=== PATIENT | female | born 2000 | race Caucasian/White ===

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

== ENCOUNTER 2021-07-09 20:20 | Outpatient (CLI) | payer BC ==
[2021-07-09 21:55] VITALS: BP 130/83; PULSE 80; RESP 16; TEMP 98.5
--- NOTE | 2021-07-10 07:47 | P.MSEPDOC ---
Presenting Problems - Arrival Data Date of Arrival on Unit: 07/09/21 Time of Arrival on Unit: 20:20 Mode of Transport: Wheelchair - Complaint OB-Reason for Admission/Chief Complaint: Pain Comment: pt presents to tr with c/o "severe lower back pain" x2 hrs. states it started. happening a few hrs after "walking up a very steep hill." pt denies any bleeding or leaking. pt states that she is feeling good fm. denies needing to void for a UA at this time. Medical History - Information : 1 Para: 0 Term: 0 : 0 Abortions: Spontaneous or Elective: 0 Number of Living Children: 0 - Gestational Age Gestational Age by MONSTER (wks/days): 25 Weeks and 4 Days Review of Systems - Review of Systems Constitutional: No problems Breast: No problems ENT: No problems Cardiovascular: No problems Respiratory: No problems Gastrointestinal: No problems Genitourinary: No problems Musculoskeletal: No problems Neurological: No problems Skin: No problems Vital Signs - Temperature Temperature: 98.5 F Temperature Source: Oral - Pulse Right Brachial Pulse Rate: 80 Pulse Assessment Method: Automatic Cuff - Respirations Respiratory Rate: 16 Oxygen Delivery Method: Room Air - Blood Pressure Right Arm Blood Pressure: 130/83 Blood Pressure Mean: 98 Blood Pressure Source: Automatic Cuff Medical Screen Scoring - Assessment - Baby A Baseline FHR: 145 Heart Rate - NICHD Category: Category I (Normal) Physician Notification - Physician Notified Physician Notified Date: 07/09/21 Physician Notified Time: 21:10 Physician: Luis Lopez Order Received: Yes - Notification Comment Comment: RN reported to Dr. Lopez that patient arrived to triage with complaints of. lower back pain after climbing a "very steep hill". Patient denies leaking or bleeding. States pain is 5/10 and constant. RN offered heat packs to back which patient states greatly relieved her pain. Dr. Lopez would like patient to be observed for one hour and if heart tones are still good patient may be released with instructions to follow up. Patients pain relieved. heart tones good. Patient discharged. Maternal Triage Index - Non-Urgent/Priority 4 Non-Urgent Priority 4: Yes Criteria Met for Priority 4: Back pain after climbing a hill Disposition - Disposition OB Disposition: Discharge to home Discharge Date: 07/09/21 Discharge Time: 21:50 I agree with the RN Medical Screening Exam: Yes Case reviewed; plan agreed upon as documented in EMR&OBIX.: Yes Diagnosis: RELATED CONDITIONS, UNSPECIFIED, SECOND TRIMESTER
== END 2021-07-09 21:50 | disposition home or self-care (01) ==
LOC: FBPOP 20:20
PROVIDERS: ATTEND Obstetrics & Gynecology
DX: O26.892 Other specified pregnancy related conditions, second trimester (principal); M54.9 Dorsalgia, unspecified; Z3A.25 25 weeks gestation of pregnancy
CPT/HCPCS: 99213

== ENCOUNTER 2021-07-11 19:11 | Inpatient (IN) | payer BC, OTHER ==
[2021-07-11] MEDS ORDERED: SODIUM CHLORIDE 0.9% 2,000 ML IV ONE (19:33)
[2021-07-11] MEDS ORDERED: ACETAMINOPHEN ORAL SUSP 160 MG/5 ML CUP PO ONE (19:33)
--- NOTE | 2021-07-11 19:52 | ED ---
Fever HPI - General Chief Complaint: Fever Stated Complaint: 26wks Preg/Fever/Cough Time Seen by Provider: 07/11/21 19:20 Source: patient, RN notes reviewed Mode of arrival: ambulatory Limitations: no limitations - History of Present Illness Initial Comments: This is a 20-year-old female [facility] chief complaint of fever. Patient states started smoking she will call cough congestion bodyaches. She is currently 26 weeks denies any complaints including vaginal bleeding vaginal discharge or abdominal pain. Patient said no sick contacts she states she took Tylenol proximal one hour ago but states feeling to 5 MLS of liquid Tylenol. Patient has no dysuria no hematuria denies any sore throat, ear pain headache or dizziness or neck pain. - Related Data Home Medications Medication Instructions Recorded Confirmed Acetaminophen Oral Susp [Tylenol] 480 mg PO Q4-6H PRN 07/11/21 07/11/21 Allergies Allergy/AdvReac Type Severity Reaction Status Date / Time No Known Allergies Allergy Verified 07/11/21 20:32 Review of Systems ROS Statement: Those systems with pertinent positive or pertinent negative responses have been documented in the HPI. ROS Other: All systems not noted in ROS Statement are negative. Past Medical History Past Medical History: No Reported History History of Any Multi-Drug Resistant Organisms: None Reported Past Surgical History: No Surgical Hx Reported Past Psychological History: No Psychological Hx Reported Smoking Status: Never smoker Past Alcohol Use History: None Reported Past Drug Use History: None Reported General Exam Limitations: no limitations General appearance: alert, in no apparent distress Head exam: Present: atraumatic, normocephalic, normal inspection Eye exam: Present: normal appearance, PERRL, EOMI. Absent: scleral icterus, con junctival injection, periorbital swelling ENT exam: Present: mucous membranes moist, TM's normal bilaterally. Absent: normal exam, normal oropharynx (Poor dentition) Neck exam: Present: normal inspection, full ROM. Absent: tenderness, meningismus, lymphadenopathy Respiratory exam: Present: normal lung sounds bilaterally. Absent: respiratory distress, wheezes, rales, rhonchi, stridor Cardiovascular Exam: Present: normal rhythm, tachycardia, normal heart sounds. Absent: systolic murmur, diastolic murmur, rubs, gallop, clicks GI/Abdominal exam: Present: soft, normal bowel sounds. Absent: distended, tenderness, guarding, rebound, rigid Back exam: Absent: CVA tenderness (R), CVA tenderness (L) Neurological exam: Present: alert Skin exam: Present: warm, dry, intact, normal color. Absent: rash Course Vital Signs 07/11/21 07/11/21 07/11/21 19:14 19:52 20:40 Temperature 101.7 F H 98.1 F Pulse Rate 154 H 135 H 109 H Respiratory 20 18 18 Rate Blood Pressure 92/57 107/66 O2 Sat by Pulse 97 97 97 Oximetry Medical Decision Making - Medical Decision Making 20-year-old presented for fever, tachycardia back pain. Patient has pyelonephritis. Patient was seen at labor and delivery 2 days ago for this back pain. Patient's case discussed with Dr. Mondragon who accepts admission will be continued on IV fluids, monitoring, IV antibiotics - Lab Data Result diagrams: 07/11/21 19:42 07/11/21 19:42 Lab Results 07/11/21 07/11/21 07/11/21 Range/Units 19:42 19:42 19:42 WBC 19.4 H (4.0-11.0) k/uL RBC 3.73 L (3.80-5.40) m/uL Hgb 13.2 (11.4-16.0) gm/dL Hct 36.8 (34.0-46.0) % MCV 98.5 (80.0-100.0) fL MCH 35.3 H (25.0-35.0) pg MCHC 35.8 (31.0-37.0) g/dL RDW 12.0 (11.5-15.5) % Plt Count 194 (150-450) k/uL MPV 9.7 Neutrophils % 91 % Lymphocytes % 4 % Monocytes % 4 % Eosinophils % 1 % Basophils % 0 % Neutrophils # 17.7 H (1.3-7.7) k/uL Lymphocytes # 0.8 L (1.0-4.8) k/uL Monocytes # 0.7 (0-1.0) k/uL Eosinophils # 0.1 (0-0.7) k/uL Basophils # 0.0 (0-0.2) k/uL Sodium 132 L (137-145) mmol/L Potassium 3.2 L (3.5-5.1) mmol/L Chloride 104 (98-107) mmol/L Carbon Dioxide 17 L (22-30) mmol/L Anion Gap 11 mmol/L BUN 10 (7-17) mg/dL Creatinine 0.72 (0.52-1.04) mg/dL Est GFR (CKD-EPI)AfAm >90 (>60 ml/min/1.73 sqM) Est GFR (CKD-EPI)NonAf >90 (>60 ml/min/1.73 sqM) Glucose 143 H (74-99) mg/dL Plasma Lactic Acid Mynor (0.7-2.0) mmol/L Calcium 9.0 (8.4-10.2) mg/dL Total Bilirubin 0.4 (0.2-1.3) mg/dL AST 23 (14-36) U/L ALT 14 (4-34) U/L Alkaline Phosphatase 111 (38-126) U/L Total Protein 6.6 (6.3-8.2) g/dL Albumin 3.4 L (3.5-5.0) g/dL Urine Color Yellow Urine Appearance Turbid H (Clear) Urine pH 6.0 (5.0-8.0) Ur Specific [place] 1.019 (1.001-1.035) Urine Protein 2+ H (Negative) Urine Glucose (UA) Negative (Negative) Urine Ketones 1+ H (Negative) Urine Blood Small H (Negative) Urine Nitrite Negative (Negative) Urine Bilirubin Negative (Negative) Urine Urobilinogen 4.0 (<2.0) mg/dL Ur Leukocyte Esterase Large H (Negative) Urine RBC 30 H (0-5) /hpf Urine WBC >182 H (0-5) /hpf Urine WBC Clumps Many H (None) /hpf Ur Squamous Epith Cells 7 H (0-4) /hpf Urine Bacteria Moderate H (None) /hpf Urine Mucus Moderate H (None) /hpf Coronavirus (PCR) (Not Detectd) 07/11/21 07/11/21 Range/Units 19:42 19:42 WBC (4.0-11.0) k/uL RBC (3.80-5.40) m/uL Hgb (11.4-16.0) gm/dL Hct (34.0-46.0) % MCV (80.0-100.0) fL MCH (25.0-35.0) pg MCHC (31.0-37.0) g/dL RDW (11.5-15.5) % Plt Count (150-450) k/uL MPV Neutrophils % % Lymphocytes % % Monocytes % % Eosinophils % % Basophils % % Neutrophils # (1.3-7.7) k/uL Lymphocytes # (1.0-4.8) k/uL Monocytes # (0-1.0) k/uL Eosinophils # (0-0.7) k/uL Basophils # (0-0.2) k/uL Sodium (137-145) mmol/L Potassium (3.5-5.1) mmol/L Chloride (98-107) mmol/L Carbon Dioxide (22-30) mmol/L Anion Gap mmol/L BUN (7-17) mg/dL Creatinine (0.52-1.04) mg/dL Est GFR (CKD-EPI)AfAm (>60 ml/min/1.73 sqM) Est GFR (CKD-EPI)NonAf (>60 ml/min/1.73 sqM) Glucose (74-99) mg/dL Plasma Lactic Acid Mynor 2.6 H* (0.7-2.0) mmol/L Calcium (8.4-10.2) mg/dL Total Bilirubin (0.2-1.3) mg/dL AST (14-36) U/L ALT (4-34) U/L Alkaline Phosphatase (38-126) U/L Total Protein (6.3-8.2) g/dL Albumin (3.5-5.0) g/dL Urine Color Urine Appearance (Clear) Urine pH (5.0-8.0) Ur Specific [place] (1.001-1.035) Urine Protein (Negative) Urine Glucose (UA) (Negative) Urine Ketones (Negative) Urine Blood (Negative) Urine Nitrite (Negative) Urine Bilirubin (Negative) Urine Urobilinogen (<2.0) mg/dL Ur Leukocyte Esterase (Negative) Urine RBC (0-5) /hpf Urine WBC (0-5) /hpf Urine WBC Clumps (None) /hpf Ur Squamous Epith Cells (0-4) /hpf Urine Bacteria (None) /hpf Urine Mucus (None) /hpf Coronavirus (PCR) Not Detected (Not Detectd) Disposition Clinical Impression: Pyelonephritis, Disposition: ADMITTED IP TO THIS HOSP Condition: Fair Referrals: None,Stated [Primary Care Provider] - 1-2 days
[2021-07-11 19:57] LABS: Basophils % (A) 0 %; Eosinophils # (A) 0.1 k/uL (0-0.7); Eosinophils % (A) 1 %; HCT 36.8 % (34.0-46.0); HGB 13.2 gm/dL (11.4-16.0); Lymphocytes # (A) 0.8 k/uL (1.0-4.8); Lymphocytes % (A) 4 %; MCH 35.3 pg (25.0-35.0); MCHC 35.8 g/dL (31.0-37.0); MCV 98.5 fL (80.0-100.0); Mean Platelet Volume 9.7; Monocytes # (A) 0.7 k/uL (0-1.0); Monocytes % (A) 4 %; Neutrophils # (A) 17.7 k/uL (1.3-7.7); Neutrophils % (A) 91 %; Platelet Count 194 k/uL (150-450); RBC 3.73 m/uL (3.80-5.40); WBC 19.4 k/uL (4.0-11.0)
[2021-07-11 20:04] LABS: Appearance,Urine Turbid (Clear); Bacteria,Urine Moderate /hpf; Bilirubin,Urine Negative (Negative); Blood,Urine Small (Negative); Color,Urine Yellow; Glucose,Urine (UA) Negative (Negative); Ketones,Urine 1+ (Negative); Leukocyte Esterase,Urine Large (Negative); Mucus,Urine Moderate /hpf; Nitrite,Urine Negative (Negative); Protein,Urine 2+ (Negative); RBC,Urine 30 /hpf (0-5); Specific Gravity,Urine 1.019 (1.001-1.035); Squamous Epithelial Cell,Urine 7 /hpf (0-4); WBC,Urine >182 /hpf (0-5)
[2021-07-11 20:09] LABS: ALT 14 U/L (4-34); AST 23 U/L (14-36); African American GFR (CKD) >90 (>60 ml/min/1.73 sqM); Albumin 3.4 g/dL (3.5-5.0); Alkaline Phosphatase 111 U/L (38-126); Anion Gap 11 mmol/L; Blood Urea Nitrogen 10 mg/dL (7-17); Carbon Dioxide 17 mmol/L (22-30); Chloride 104 mmol/L (98-107); Glucose 143 mg/dL (74-99); Non-African American GFR(CKD) >90 (>60 ml/min/1.73 sqM); Potassium 3.2 mmol/L (3.5-5.1); Sodium 132 mmol/L (137-145); Total Bilirubin 0.4 mg/dL (0.2-1.3); Total Protein 6.6 g/dL (6.3-8.2)
[2021-07-11] MEDS ORDERED: SODIUM CHLORIDE 0.9% 1,000 ML IV SCH ×2 (21:30→23:00)
[2021-07-11] MEDS ORDERED: NALOXONE 0.4 MG/ML 1 ML VIAL IV PRN (21:30)
--- NOTE | 2021-07-12 02:01 | P.HPOB ---
History of Present Illness H&P Date: 07/12/21 Chief Complaint: pyleonephritis 20 year old at 26 weeks presents complaining of flank pain and fever. Her urine shows evidence of UTI, she has a high wbc count at 19 and a fever up to 101.7. She will be admitted for IV antibiotics. FHT 140's and she is not daniel. Review of Systems All systems: negative Constitutional: Denies chills, Denies fever Eyes: denies blurred vision, denies pain Ears, nose, mouth and throat: Denies headache, Denies sore throat Cardiovascular: Denies chest pain, Denies shortness of breath Respiratory: Denies cough Gastrointestinal: Denies abdominal pain, Denies diarrhea, Denies nausea, Denies vomiting Genitourinary: Denies dysuria, Denies hematuria Musculoskeletal: Denies myalgias Integumentary: Denies pruritus, Denies rash Neurological: Denies numbness, Denies weakness Psychiatric: Denies anxiety, Denies depression Endocrine: Denies fatigue, Denies weight change Past Medical History Past Medical History: No Reported History History of Any Multi-Drug Resistant Organisms: None Reported Past Surgical History: No Surgical Hx Reported Past Psychological History: No Psychological Hx Reported Smoking Status: Former smoker Past Alcohol Use History: None Reported Additional Past Alcohol Use History / Comment(s): Patient quit vaping when she found out she was . Past Drug Use History: None Reported Medications and Allergies Home Medications Medication Instructions Recorded Confirmed Type Acetaminophen Oral Susp [Tylenol] 480 mg PO Q4-6H PRN 07/11/21 07/11/21 History Allergies Allergy/AdvReac Type Severity Reaction Status Date / Time No Known Allergies Allergy Verified 07/11/21 20:32 Exam Osteopathic Statement: *. No significant issues noted on an osteopathic structural exam other than those noted in the History and Physical/Consult. Vital Signs Temp Pulse Pulse Resp BP BP Pulse Ox 07/11/21 22:08 97.7 F 105 H 16 118/70 07/11/21 21:30 104 H 18 102/61 98 07/11/21 20:40 98.1 F 109 H 18 107/66 97 07/11/21 19:52 135 H 18 97 07/11/21 19:14 101.7 F H 154 H 20 92/57 97 Intake and Output 07/11/21 07/11/21 07/12/21 14:59 22:59 06:59 Other: Weight 81.647 kg Heart: Regular rate and rhythm Lungs: Clear to auscultation bilaterally Abdomen: Soft, nontender Extremities: Negative Homans sign Results Result Diagrams: 07/11/21 19:42 07/11/21 19:42 Abnormal Lab Results - Last 24 Hours (Table) 07/11/21 07/11/21 07/11/21 Range/Units 19:42 19:42 19:42 WBC 19.4 H (4.0-11.0) k/uL RBC 3.73 L (3.80-5.40) m/uL MCH 35.3 H (25.0-35.0) pg Neutrophils # 17.7 H (1.3-7.7) k/uL Lymphocytes # 0.8 L (1.0-4.8) k/uL Sodium 132 L (137-145) mmol/L Potassium 3.2 L (3.5-5.1) mmol/L Carbon Dioxide 17 L (22-30) mmol/L Glucose 143 H (74-99) mg/dL Plasma Lactic Acid Mynor (0.7-2.0) mmol/L Albumin 3.4 L (3.5-5.0) g/dL Urine Appearance Turbid H (Clear) Urine Protein 2+ H (Negative) Urine Ketones 1+ H (Negative) Urine Blood Small H (Negative) Ur Leukocyte Esterase Large H (Negative) Urine RBC 30 H (0-5) /hpf Urine WBC >182 H (0-5) /hpf Urine WBC Clumps Many H (None) /hpf Ur Squamous Epith Cells 7 H (0-4) /hpf Urine Bacteria Moderate H (None) /hpf Urine Mucus Moderate H (None) /hpf 07/11/21 07/11/21 Range/Units 19:42 23:00 WBC (4.0-11.0) k/uL RBC (3.80-5.40) m/uL MCH (25.0-35.0) pg Neutrophils # (1.3-7.7) k/uL Lymphocytes # (1.0-4.8) k/uL Sodium (137-145) mmol/L Potassium (3.5-5.1) mmol/L Carbon Dioxide (22-30) mmol/L Glucose (74-99) mg/dL Plasma Lactic Acid Mynor 2.6 H* 0.6 L (0.7-2.0) mmol/L Albumin (3.5-5.0) g/dL Urine Appearance (Clear) Urine Protein (Negative) Urine Ketones (Negative) Urine Blood (Negative) Ur Leukocyte Esterase (Negative) Urine RBC (0-5) /hpf Urine WBC (0-5) /hpf Urine WBC Clumps (None) /hpf Ur Squamous Epith Cells (0-4) /hpf Urine Bacteria (None) /hpf Urine Mucus (None) /hpf Assessment and Plan (1) Pyelonephritis Current Visit: Yes Status: Acute Code(s): N12 - TUBULO-INTERSTITIAL NEPHRITIS, NOT SPCF ACUTE OR CHRONIC SNOMED Code(s): 09213501 (2) 26 weeks gestation of Current Visit: Yes Status: Acute Code(s): Z3A.26 - 26 WEEKS GESTATION OF SNOMED Code(s): 22779580 Plan: 1. cont antibiotics started in ER-rocephin 2. IV fluids 3. antipyretics
--- NOTE | 2021-07-12 06:44 | P.PN ---
Progress Note - Text Progress Note Date: 07/12/21 Patient has seen and examined. Ginna was admitted last evening for pyelonephritis. She was having some low back and right flank pain. Patient was febrile had elevated white count. Initial lactic acid was elevated but was normal on repeat. Patient is still having pain feeling better. Vital signs are stable and she is afebrile. Repeat CBC today is pending. Plan today is to continue IV antibiotics and await urine culture results. I'm going to recheck a CBC and lactic acid today. Once she is afebrile for 24-48 hours she'll go home on some oral antibiotics for 7 days.
[2021-07-12 07:31] LABS: Basophils % (A) 0 %; Eosinophils # (A) 0.2 k/uL (0-0.7); Eosinophils % (A) 1 %; HCT 37.2 % (34.0-46.0); HGB 12.9 gm/dL (11.4-16.0); Lymphocytes # (A) 1.4 k/uL (1.0-4.8); Lymphocytes % (A) 8 %; MCHC 34.8 g/dL (31.0-37.0); MCV 100.5 fL (80.0-100.0); Mean Platelet Volume 11.1; Monocytes # (A) 0.9 k/uL (0-1.0); Monocytes % (A) 6 %; Neutrophils # (A) 14.1 k/uL (1.3-7.7); Neutrophils % (A) 84 %; Platelet Count 190 k/uL (150-450); RDW 12.9 % (11.5-15.5); WBC 16.9 k/uL (4.0-11.0)
[2021-07-12] MEDS ORDERED: GENTAMICIN PER PHARMACY MISCELLANE PRN (08:57)
[2021-07-12] MEDS: LACTATED RINGERS 1,000 ML IV SCH ×2 (09:32→22:42)
[2021-07-12] MEDS: ACETAMINOPHEN ORAL SUSP 160 MG/5 ML CUP PO PRN ×2 (09:32→21:17)
[2021-07-12] MEDS: GENTAMICIN 100 MG in SODIUM CHLORIDE 0.9% 100 ML IVPB SCH ×2 (10:39→17:59)
--- NOTE | 2021-07-12 12:26 | P.PN ---
Progress Note - Text Progress Note Date: 07/12/21 Patient's temperature went up to 103 this morning. I have added gentamicin to her antibiotic regimen and will give Tylenol as needed to bring her fever down. Continue IV fluids and await the urine culture results.
[2021-07-13] MEDS: LACTATED RINGERS 1,000 ML IV SCH ×3 (02:08→23:29)
[2021-07-13] MEDS: GENTAMICIN 100 MG in SODIUM CHLORIDE 0.9% 100 ML IVPB SCH ×3 (02:08→17:57)
--- NOTE | 2021-07-13 08:27 | P.PN ---
Progress Note - Text Progress Note Date: 07/13/21 Patient is seen and evaluated this morning. She is overall doing well. She is been afebrile. We are waiting for cultures to return suite no what antibody to send her home on. Once she's received 48 hours of IV antibiotics and we know what antibiotic is sensitive to will likely be able to discharge her home since she now is been afebrile for most 0.4 hours. All questions are answered for her at this time. Otherwise her vital signs are stable and she is afebrile. Heart regular, lungs clear, extremities without pain. Gravid uterus is noted. All the questions are answered for her at this time we'll plan to continue care for now.
[2021-07-13] MEDS ORDERED: GENTAMICIN TROUGH DUE 1 EACH MISC MISCELLANE ONE (09:30)
[2021-07-13 10:33] LABS: Basophils % (A) 0 %; Eosinophils # (A) 0.1 k/uL (0-0.7); Eosinophils % (A) 1 %; HCT 30.9 % (34.0-46.0); HGB 10.9 gm/dL (11.4-16.0); Lymphocytes # (A) 1.2 k/uL (1.0-4.8); Lymphocytes % (A) 12 %; MCH 35.6 pg (25.0-35.0); MCHC 35.2 g/dL (31.0-37.0); MCV 100.9 fL (80.0-100.0); Mean Platelet Volume 9.5; Monocytes # (A) 0.3 k/uL (0-1.0); Monocytes % (A) 3 %; Neutrophils # (A) 8.3 k/uL (1.3-7.7); Neutrophils % (A) 82 %; Platelet Count 156 k/uL (150-450); RBC 3.07 m/uL (3.80-5.40); RDW 12.2 % (11.5-15.5); WBC 10.1 k/uL (4.0-11.0)
[2021-07-13 10:46] LABS: African American GFR (CKD) >90 (>60 ml/min/1.73 sqM); Non-African American GFR(CKD) >90 (>60 ml/min/1.73 sqM)
[2021-07-13] MEDS ORDERED: GENTAMICIN PEAK DUE 1 EACH MISC MISCELLANE ONE (12:00)
[2021-07-13 16:19] VITALS: RESP 16
[2021-07-13] MEDS: ACETAMINOPHEN ORAL SUSP 160 MG/5 ML CUP PO PRN (21:18)
[2021-07-14] MEDS: GENTAMICIN 100 MG in SODIUM CHLORIDE 0.9% 100 ML IVPB SCH ×2 (02:07→10:17)
[2021-07-14] MEDS: LACTATED RINGERS 1,000 ML IV SCH (02:08)
--- NOTE | 2021-07-14 09:22 | P.DS ---
Providers Date of admission: 07/11/21 21:56 Expected date of discharge: 07/14/21 Attending physician: Rosie Mondragon Primary care physician: Stated None Hospital Course: Patient is feeling very well this morning. She's been ambulating, voiding and she is been tolerating her diet. Her symptoms have completely abated. She has no back pain or abdominal pain. She is requesting discharge home today. I did explain to her again I do not have a sensitivity but we could try managed antibiotic twice she's been getting through the IV and have her follow-up on Friday or Friday for verification that her antibiotic is correct and sen sitivity matches what she is been discharged on. Sure discharged on Suprax which is a good corollary to ceftriaxone which she is been taking and as been working well. She is afebrile and has been afebrile for almost 48 hours. Her white blood cell count yesterday was 10.7. She voices no other complaints. Her heart is regular, lungs clear, extremities without pain. Abdomen is otherwise soft nontender and there is no costovertebral angle tenderness. Assessment pyelonephritis. Plan discharged home on oral antibiotic for type X days and follow up with Dr. Conti on Friday or Friday for verification of sensitivity of antibiotics. Patient Condition at Discharge: Good Plan - Discharge Summary Discharge Rx Participant: No New Discharge Prescriptions: New Cefixime [Suprax] 400 mg PO DAILY #10 cap No Action Acetaminophen Oral Susp [Tylenol] 480 mg PO Q4-6H PRN PRN Reason: Pain Or Fever > 100.5 Discharge Medication List Acetaminophen Oral Susp [Tylenol] 480 mg PO Q4-6H PRN 07/11/21 [History] Cefixime [Suprax] 400 mg PO DAILY #10 cap 07/14/21 [Rx] Follow up Appointment(s)/Referral(s): None,Stated [Primary Care Provider] - 1-2 days Terrance Duvall MD [STAFF PHYSICIAN] - 1-2 Days Activity/Diet/Wound Care/Special Instructions: Report back to labor and delivery for any high temperatures or back pain resumption of symptoms. Finished the antibiotics. Follow up with Dr. Duvall Friday or Friday Discharge Disposition: HOME SELF-CARE
[2021-07-14 09:34] VITALS: BP 122/72; PULSE 88; TEMP 98
== END 2021-07-14 11:30 | disposition home or self-care (01) | DRG 832 ==
LOC: EC 19:11 → 4FBP 21:56
PROVIDERS: ADMIT Obstetrics & Gynecology; ATTEND Obstetrics & Gynecology
DX: O23.02 Infections of kidney in pregnancy, second trimester (principal); O99.412 Diseases of the circulatory system complicating pregnancy, second trimester; Z3A.26 26 weeks gestation of pregnancy; O99.332 Smoking (tobacco) complicating pregnancy, second trimester; F17.210 Nicotine dependence, cigarettes, uncomplicated; Z20.822 Contact with and (suspected) exposure to COVID-19; R00.0 Tachycardia, unspecified
CPT/HCPCS: 36415; 80053; 80170; 81001; 82565; 83605; 85025; 87040; 87077; 87086; 87186; 87635; 93005; 96361; 96374; 99285

== ENCOUNTER 2021-10-16 05:35 | Inpatient (IN) | payer BC, OTHER ==
[2021-10-16] MEDS ORDERED: METHYLERGONOVINE 0.2 MG/ML 1 ML AMP IM PRN (05:53)
[2021-10-16] MEDS ORDERED: CARBOPROST TROMETHAMINE 250 MCG/ML 1 ML AMP IM PRN (05:53)
[2021-10-16] MEDS ORDERED: OXYTOCIN 30 UNITS/500 ML NS 30 UNIT in SALINE 1 500ML.BAG IV SCH ×2 (05:53→14:51)
[2021-10-16] MEDS ORDERED: LIDOCAINE 0.5% (PF) 5 MG/ML (50 ML SDV) SQ PRN (05:53)
[2021-10-16] MEDS ORDERED: OXYTOCIN 10 UNIT/ML 1 ML VIAL IM PRN (05:53)
[2021-10-16] MEDS ORDERED: TERBUTALINE 1 MG/ML VIAL SQ PRN (05:53)
[2021-10-16] MEDS ORDERED: LACTATED RINGERS 1,000 ML IV SCH (05:53)
--- NOTE | 2021-10-16 06:25 | P.HPOB ---
History of Present Illness H&P Date: 10/16/21 Chief Complaint: requested induction of labor This patient is a pleasant 21-year-old 1 para 0 female estimated date of confinement 10/18/2021 estimated gestational age 39-5/7 weeks who presents to labor and delivery for requested induction of labor. Patient's care was complicated by first trimester positive chlamydia however she was treated had negative test of cure 2. was also complicated by an admission and 26 weeks for pyelonephritis. She is now uncomfortable requesting delivery. Review of Systems Genitourinary: Reports Menstruation: Reports amenorrhea Past Medical History Past Medical History: No Reported History History of Any Multi-Drug Resistant Organisms: None Reported Past Surgical History: No Surgical Hx Reported Past Anesthesia/Blood Transfusion Reactions: No Reported Reaction Past Psychological History: No Psychological Hx Reported Smoking Status: Former smoker Past Alcohol Use History: None Reported Additional Past Alcohol Use History / Comment(s): Patient states she quit smoking when she found out she was Past Drug Use History: None Reported - Past Family History Father Family Medical History: Hypertension Medications and Allergies Allergies Allergy/AdvReac Type Severity Reaction Status Date / Time No Known Allergies Allergy Verified 07/11/21 20:32 Exam Vital Signs Temp Pulse Resp BP Pulse Ox 10/16/21 05:53 97.5 F L 87 18 136/90 100 Intake and Output 10/15/21 10/15/21 10/16/21 14:59 22:59 06:59 Other: # Voids 0 Weight 86.636 kg - OBG Physical Exam Abdomen: bowel sounds normal, no diffuse tenderness, no bruit present, no guarding noted, no hepatomegaly, no splenomegaly, no mass Vulva: both: normal Vagina: normal moisture, no discharge Cervix: no lesion (cervix is 2/50% effaced -2 station.), no discharge Results labs show she is O positive, rubella immune, RPR nonreactive, hepatitis B is negative, HIV is negative, group B strep was negative, Glucola was normal, ultrasounds of shown normal anatomy and growth. Assessment and Plan Assessment: This is a pleasant 21-year-old 1 para 0 female 39-5/7 weeks gestation admitted to labor and delivery for requested induction of labor. Plan is induction of labor and anticipate vaginal delivery. (1) 39 weeks gestation of Current Visit: Yes Status: Acute Code(s): Z3A.39 - 39 WEEKS GESTATION OF SNOMED Code(s): 86746627 (2) Elective induction of labor planned Current Visit: Yes Status: Acute Code(s): [id number] - SNOMED Code(s): 779198060
[2021-10-16 06:41] LABS: Basophils % (A) 0 %; Eosinophils # (A) 0.2 k/uL (0-0.7); Eosinophils % (A) 2 %; HCT 35.1 % (34.0-46.0); HGB 12.2 gm/dL (11.4-16.0); Lymphocytes # (A) 2.9 k/uL (1.0-4.8); Lymphocytes % (A) 21 %; MCH 33.7 pg (25.0-35.0); MCHC 34.8 g/dL (31.0-37.0); Mean Platelet Volume 10.7; Monocytes # (A) 0.5 k/uL (0-1.0); Monocytes % (A) 4 %; Neutrophils # (A) 9.6 k/uL (1.3-7.7); Neutrophils % (A) 72 %; Platelet Count 296 k/uL (150-450); RBC 3.61 m/uL (3.80-5.40); RDW 11.5 % (11.5-15.5); WBC 13.4 k/uL (3.8-10.6)
[2021-10-16] MEDS: BUTORPHANOL 1 MG/ML 1 ML VIAL IV PRN ×2 (10:22→12:17)
[2021-10-16] MEDS ORDERED: ZOLPIDEM 5 MG TAB PO PRN (14:51)
[2021-10-16] MEDS ORDERED: diphenhydrAMINE 25 MG CAP PO PRN (14:51)
[2021-10-16] MEDS ORDERED: HYDROCORTISONE 2.5% RECTAL CREAM 30 GM TUBE RECTAL PRN (14:51)
[2021-10-16] MEDS ORDERED: BENZOCAINE/MENTHOL SPRAY 1 GM/SPRAY AEROSOL TOPICAL PRN (14:51)
[2021-10-16] MEDS ORDERED: diphenhydrAMINE 50 MG/ML 1 ML VIAL IVP PRN (14:51)
[2021-10-16] MEDS ORDERED: bisacodyL 10 MG SUPP RECTAL PRN (14:51)
[2021-10-16] MEDS ORDERED: IBUPROFEN 600 MG TAB PO PRN (14:51)
[2021-10-16] MEDS ORDERED: ACETAMINOPHEN TAB 325 MG TAB PO PRN (14:51)
[2021-10-16] MEDS ORDERED: LANOLIN CREAM 5 GM TUBE TOPICAL PRN (14:51)
[2021-10-16] MEDS ORDERED: SIMETHICONE 80 MG CHEWABLE PO PRN (14:51)
[2021-10-16] MEDS: SENNOSIDES-DOCUSATE SODIUM 1 EACH TAB PO SCH ×2 (16:40→20:23)
--- NOTE | 2021-10-16 17:52 | P.PROBDLV ---
Vaginal Delivery Note - . Vaginal Delivery Note: Normal vaginal delivery viable female Apgars 8 and 9 delivery time is 1427 hrs. Please see dictated H&P for intimate details of this patient's admission. In brief summary this is a pleasant 21-year-old 1 para 0 female 39-5/7 weeks gestation admitted to labor and delivery for requested induction of labor. On admission patient is 2 cm dilated has artificial rupture membranes for clear fluid. Labor is induced with Pitocin per protocol. Patient's labor progresses normally and she does receive 2 doses of intrapartum Stadol. Patient gets to complete pushes the head to the perineum. The posterior perineum is supported and we have controlled delivery of the infant's head over the intact perineum. Mouth and nares are bulb suctioned. There is no evidence of nuchal cord. Infant's head is left opposite anterior. With gentle downward traction we then have deliver the anterior and posterior shoulder and rest this 's body. This is a vigorous viable female Apgars 8 and 9 delivery time is 1427 hrs. After delivery of the infant the umbilical cords quite short so has to be immediately clamped and cut does appear to be trivascular. The is late on the mother's abdomen. The placenta is then spontaneously delivered in tact. Estimated blood loss is about 1 50 mL. First-degree left perineal laceration which is repaired with 3-0 Vicryl in the usual fashion. Excellent reapproximation is noted. All counts are correct 3. There are no complications. Infant and mother are stable delivery room.
[2021-10-17 03:45] VITALS: TEMP 98
--- NOTE | 2021-10-17 06:21 | P.PNOBGVD ---
Subjective - Subjective Patient reports: Reports appetite normal, Reports voiding normally, Reports pain well controlled, Reports ambulating normally : doing well Objective - Latest Vital Signs Latest vital signs: Vital Signs Temp Pulse Resp BP Pulse Ox 10/17/21 03:43 98.0 F 85 16 105/71 98 10/17/21 00:00 98.6 F 87 16 126/87 10/16/21 20:00 98.3 F 94 16 121/87 99 10/16/21 16:45 71 16 124/87 10/16/21 16:15 98.3 F 70 16 129/78 10/16/21 15:45 68 17 126/86 10/16/21 15:30 73 15 117/82 10/16/21 15:15 81 15 119/85 10/16/21 15:00 75 16 117/76 10/16/21 14:45 98.0 F 75 16 115/76 Intake and Output 10/16/21 10/16/21 10/17/21 14:59 22:59 06:59 Intake Total 8 167 Balance 8 167 Intake: Intake, IV Titration 8 167 Amount Oxytocin 30 Units/500 ml 8 167 Ns 30 unit In Saline 1 500ml.bag @ Per Protocol IV .Q0M [facility] Rx#:[id number] Other: # Voids 2 1 1 - Exam Lungs: bilateral: normal Chest: Normal S1, Normal S2 Extremities: Present: normal Abdomen: Present: normal appearance, soft Uterus: Present: normal, firm - Labs Labs: Abnormal Lab Results - Last 24 Hours (Table) 10/16/21 Range/Units 06:00 WBC 13.4 H (3.8-10.6) k/uL RBC 3.61 L (3.80-5.40) m/uL Neutrophils # 9.6 H (1.3-7.7) k/uL Assessment and Plan Assessment: day #1. Patient is resting without new complaints and wishes to go home. Vital signs are stable she's afebrile. Uterus is firm nontender and she is having normal lochia. My impression is that this is a normal course. Plan is to continue routine care discharge home later today. (1) 39 weeks gestation of Current Visit: Yes Status: Acute Code(s): Z3A.39 - 39 WEEKS GESTATION OF SNOMED Code(s): 62978079 (2) Elective induction of labor planned Current Visit: Yes Status: Acute Code(s): UIT2488 - SNOMED Code(s): 303116273
--- NOTE | 2021-10-17 06:32 | P.DS ---
Providers Date of admission: 10/16/21 05:35 Expected date of discharge: 10/17/21 Attending physician: Terrance Duvall Primary care physician: Stated None - Discharge Diagnosis(es) (1) 39 weeks gestation of Current Visit: Yes Status: Acute (2) Elective induction of labor planned Current Visit: Yes Status: Inactive Hospital Course: Please see dictated H&P for intimate details of this patient's admission. In brief summary this is a pleasant 21-year-old 1 para 0 female 39-5/7 weeks gestation admitted to labor and delivery for requested induction of labor. Patient is admitted has uncomplicated induction of labor quickly goes on to have a vaginal delivery viable female infant. Please see dictated delivery note. day 1 patient's felt to be stable for discharge home follow up with me in 6 weeks. Procedures: induction of labor and normal vaginal delivery Patient Condition at Discharge: Good Plan - Discharge Summary New Discharge Prescriptions: New Ibuprofen [Motrin] 600 mg PO Q6HR PRN #30 tab PRN Reason: Pain Discharge Medication List Ibuprofen [Motrin] 600 mg PO Q6HR PRN #30 tab 10/17/21 [Rx] Follow up Appointment(s)/Referral(s): Terrance Duvall MD [STAFF PHYSICIAN] - 11/26/21 10:15 am Patient Instructions/Handouts: Vaginal Delivery (DC) Discharge Disposition: HOME SELF-CARE
[2021-10-17 08:11] VITALS: BP 132/86; PULSE 82; RESP 14
[2021-10-17] MEDS: SENNOSIDES-DOCUSATE SODIUM 1 EACH TAB PO SCH (08:12)
== END 2021-10-17 16:00 | disposition home or self-care (01) | DRG 807 ==
LOC: 4FBP 05:35
PROVIDERS: ADMIT Obstetrics & Gynecology; ATTEND Obstetrics & Gynecology
PROC: 10E0XZZ Delivery of Products of Conception, External Approach (ICD-10-PCS; principal; 2021-10-16)
PROC: 3E033VJ Introduction of Other Hormone into Peripheral Vein, Percutaneous Approach (ICD-10-PCS; 2021-10-16)
PROC: 10907ZC Drainage of Amniotic Fluid, Therapeutic from Products of Conception, Via Natural or Artificial Opening (ICD-10-PCS; 2021-10-16)
PROC: 0HQ9XZZ Repair Perineum Skin, External Approach (ICD-10-PCS; 2021-10-16)
DX: O70.0 First degree perineal laceration during delivery (principal); Z37.0 Single live birth; Z3A.39 39 weeks gestation of pregnancy; Z87.891 Personal history of nicotine dependence
CPT/HCPCS: 85025; 86850; 86900; 86901

== ENCOUNTER → 2022-06-13 | Outpatient (CLI) | payer BC, OTHER | END | disposition home or self-care (01) | LOC: LABWHC1 14:12 | PROVIDERS: ATTEND Obstetrics & Gynecology | DX: N94.89 Other specified conditions associated with female genital organs and menstrual cycle (principal) | CPT/HCPCS: 36415; 84702 ==